=== PATIENT | female | born 1990 | race Two or more races ===

== ENCOUNTER 2022-02-12 17:11 | Emergency (ER) | payer SELFPAY ==
[~2022-02-12] VITALS: Ht 170.2 cm; Wt 59.0 kg
[2022-02-12 17:32] VITALS: BP 111/75
== END 2022-02-13 02:01 | disposition left against medical advice (07) ==
LOC: EDBD 17:11 → ER 17:11
DX: M54.59 Other low back pain (principal); Z53.21 Procedure and treatment not carried out due to patient leaving prior to being seen by health care provider